=== PATIENT | female | born 1935 | race Caucasian/White ===

== ENCOUNTER 2021-04-26 13:56 | Inpatient (IN) | payer MEDICARE ==
[~2021-04-26] VITALS: Ht 157.5 cm; Wt 48.0 kg
[2021-04-26 15:48] LABS: HEMATOCRIT 44.9 % (37.0-47.0); HEMOGLOBIN 14.7 g/dl (12.0-16.0); IMMATURE GRANULOCYTES 0.3 % (0.0-5.0); MEAN CELL VOLUME 88.4 fL CALC (80.0-100.0); MEAN CORPUSCULAR HGB 28.9 pG CALC (26.0-32.0); MEAN CORPUSCULAR HGB CONC 32.7 g/dL CAL (32.0-36.0); NEUT# 4.22 thou/uL (2.00-7.15); RED BLOOD COUNT 5.08 mill/uL (4.20-5.60); RED CELL DISTRI WIDTH 13.9 % (11.5-15.5)
[2021-04-26 15:48] LABS: URINE BILIRUBIN - DIPSTICK NEGATIVE (NEGATIVE); URINE BLOOD DIPSTICK TRACE-INTACT (NEGATIVE); URINE COLOR YELLOW; URINE GLUCOSE - DIPSTICK NEGATIVE (NEGATIVE); URINE KETONE NEGATIVE (NEGATIVE); URINE PROTEIN - DIPSTICK 100 mg/dL (NEG-TRACE); URINE SPECIFIC GRAVITY >=1.030; URINE UROBILINOGEN - DIPSTICK 0.2 E.U./dL (0.2)
[2021-04-26 15:51] LABS: URINE LEUK ESTERASE SMALL (NEGATIVE); URINE NITRITE - DIPSTICK NEGATIVE (Negative)
[2021-04-26 15:56] LABS: URINE SQUAMOUS EPITHELIAL CELL FEW EPI/hpf (0-FEW); URINE WBC 50-100 WBC/hpf (0-5)
[2021-04-26 16:06] LABS: ALBUMIN 4.4 g/dL (3.2-5.0); BILIRUBIN, TOTAL 1.1 mg/dL (0.0-1.4); CREATININE 1.5 mg/dL (0.5-1.0); POTASSIUM 4.2 mmol/l (3.5-5.1); TOTAL PROTEIN 8.2 g/dL (6.3-8.2)
[2021-04-26 16:11] LABS: D-DIMER 0.51 mg/L (0.19-0.60)
[2021-04-26 16:13] LABS: ACT PARTIAL THROMBO TIME 25.7 SECONDS (20.0-32.5); PROTHROMBIN TIME 10.1 SECONDS (9.0-12.5)
[2021-04-26] MEDS ORDERED: HYDROCHLOROTH12.5 MG PO (19:15)
[2021-04-26] MEDS ORDERED: NORVASC5 M1 PO (19:17)
[2021-04-26] MEDS ORDERED: MEMANTINE HYDRO10 MG PO (19:17)
[2021-04-26] MEDS ORDERED: AMARYL1 MG PO (19:18)
[2021-04-26] MEDS ORDERED: LIPITOR20 MG PO (19:18)
[2021-04-26] MEDS ORDERED: CELEBREX100 M1 PO (19:19)
[2021-04-26] MEDS ORDERED: CLONIDINE0.1 MG PO (19:20)
[2021-04-26] MEDS ORDERED: ADULT ASPIRIN R81 MG PO (19:20)
[2021-04-26 20:20] VITALS: BP 141/66
[2021-04-26 23:40] VITALS: BP 133/53
[2021-04-27 04:00] VITALS: BP 140/69
[2021-04-27 04:59] LABS: HEMATOCRIT 40.3 % (37.0-47.0); HEMOGLOBIN 14.1 g/dl (12.0-16.0); IMMATURE GRANULOCYTES 0.5 % (0.0-5.0); MEAN CELL VOLUME 88.2 fL CALC (80.0-100.0); MEAN CORPUSCULAR HGB 30.9 pG CALC (26.0-32.0); NEUT# 4.21 thou/uL (2.00-7.15); RED BLOOD COUNT 4.57 mill/uL (4.20-5.60); RED CELL DISTRI WIDTH 13.9 % (11.5-15.5)
[2021-04-27 05:08] LABS: ALKALINE PHOSPHATASE 120 u/l (38-126); BUN 24 mg/dL (8-23); BUN/CREATININE RATIO 21 (12-20 (CALC)); C-REACTIVE PROTEIN < 0.5 mg/dL (0-0.9); CARBON DIOXIDE 34 mmol/l (22-30); CHLORIDE 100 mmol/l (95-108); CREATININE 1.1 mg/dL (0.5-1.0); GFR 47 ML/MIN (>=60 (CALC)); GFR FOR AFR.AMER. 57 ML/MIN (>=60 (CALC)); SGOT/AST 37 u/l (9-36); SODIUM 139 mmol/l (137-146)
[2021-04-27 05:10] LABS: ALBUMIN 3.5 g/dL (3.2-5.0); ANION GAP 8 (6-22 (CALC)); BILIRUBIN, TOTAL 0.5 mg/dL (0.0-1.4); POTASSIUM 2.6 mmol/l (3.5-5.1); TOTAL PROTEIN 6.5 g/dL (6.3-8.2)
[2021-04-27 07:00] VITALS: BP 139/57
[2021-04-27 09:59] LABS: MAGNESIUM 1.9 mg/dL (1.6-2.3); POTASSIUM 3.1 mmol/l (3.5-5.1)
[2021-04-27 11:00] VITALS: BP 142/59
[2021-04-27 15:36] VITALS: BP 157/77
[2021-04-27 19:03] VITALS: BP 186/72
[2021-04-27 20:23] VITALS: BP 164/66
[2021-04-28] VITALS: BP 134/58
[2021-04-28 04:12] VITALS: BP 149/62
[2021-04-28 05:16] LABS: HEMATOCRIT 41.5 % (37.0-47.0); HEMOGLOBIN 13.6 g/dl (12.0-16.0); MEAN CORPUSCULAR HGB 29.5 pG CALC (26.0-32.0); MEAN CORPUSCULAR HGB CONC 32.8 g/dL CAL (32.0-36.0); RED BLOOD COUNT 4.61 mill/uL (4.20-5.60); RED CELL DISTRI WIDTH 13.8 % (11.5-15.5)
[2021-04-28 05:41] LABS: ALBUMIN 3.4 g/dL (3.2-5.0); ALKALINE PHOSPHATASE 113 u/l (38-126); ANION GAP 11 (6-22 (CALC)); BILIRUBIN, TOTAL 0.5 mg/dL (0.0-1.4); BUN 29 mg/dL (8-23); BUN/CREATININE RATIO 29 (12-20 (CALC)); CARBON DIOXIDE 28 mmol/l (22-30); CHLORIDE 106 mmol/l (95-108); GFR 53 ML/MIN (>=60 (CALC)); GFR FOR AFR.AMER. > 60 ML/MIN (>=60 (CALC)); MAGNESIUM 1.9 mg/dL (1.6-2.3); POTASSIUM 3.4 mmol/l (3.5-5.1); SGOT/AST 36 u/l (9-36); SODIUM 142 mmol/l (137-146); TOTAL PROTEIN 6.4 g/dL (6.3-8.2)
[2021-04-28 11:00] VITALS: BP 159/69
[2021-04-28 14:45] VITALS: BP 150/67
[2021-04-28 19:00] VITALS: BP 105/50
[2021-04-29] VITALS: BP 140/68
[2021-04-29 04:00] VITALS: BP 141/72
[2021-04-29 05:38] LABS: HEMATOCRIT 40.4 % (37.0-47.0); HEMOGLOBIN 13.5 g/dl (12.0-16.0); IMMATURE GRANULOCYTES 0.3 % (0.0-5.0); MEAN CELL VOLUME 89.4 fL CALC (80.0-100.0); MEAN CORPUSCULAR HGB 29.9 pG CALC (26.0-32.0); MEAN CORPUSCULAR HGB CONC 33.4 g/dL CAL (32.0-36.0); NEUT# 6.9 thou/uL (2.00-7.15); RED BLOOD COUNT 4.52 mill/uL (4.20-5.60); RED CELL DISTRI WIDTH 13.9 % (11.5-15.5)
[2021-04-29 06:08] LABS: ALBUMIN 3.3 g/dL (3.2-5.0); ALKALINE PHOSPHATASE 104 u/l (38-126); ANION GAP 9 (6-22 (CALC)); BILIRUBIN, TOTAL 0.6 mg/dL (0.0-1.4); BUN 24 mg/dL (8-23); BUN/CREATININE RATIO 24 (12-20 (CALC)); C-REACTIVE PROTEIN 0.5 mg/dL (0-0.9); CARBON DIOXIDE 29 mmol/l (22-30); CHLORIDE 106 mmol/l (95-108); GFR 53 ML/MIN (>=60 (CALC)); GFR FOR AFR.AMER. > 60 ML/MIN (>=60 (CALC)); POTASSIUM 3.7 mmol/l (3.5-5.1); SGOT/AST 37 u/l (9-36); SODIUM 141 mmol/l (137-146); TOTAL PROTEIN 6.2 g/dL (6.3-8.2)
[2021-04-29 07:55] VITALS: BP 124/52
[2021-04-29 10:56] VITALS: BP 178/72
[2021-04-29] MEDS ORDERED: ZITHROMAX250 MG PO (13:38)
[2021-04-29] MEDS ORDERED: ASPIRIN REGULA325 M1 PO (13:38)
[2021-04-29] MEDS ORDERED: VENTOLIN HFA108 MCG IN (13:38)
[2021-04-29] MEDS ORDERED: DEXAMETHASON6 MG PO (13:38)
== END 2021-04-29 16:32 | disposition home health service (06) | DRG 177 ==
LOC: ED 13:56 → ED-I 16:52 → ED 18:37 → MS2 18:38
PROVIDERS: Nurse Practitioner; ADMIT Internal Medicine; ATTEND Internal Medicine
PROC: XW033E5 Introduction of Remdesivir Anti-infective into Peripheral Vein, Percutaneous Approach, New Technology Group 5 (ICD-10-PCS; principal; 2021-04-27)
DX: U07.1 COVID-19 (principal); J12.82 Pneumonia due to coronavirus disease 2019; N17.9 Acute kidney failure, unspecified; N39.0 Urinary tract infection, site not specified; R09.02 Hypoxemia; E86.0 Dehydration; E87.6 Hypokalemia; I10 Essential (primary) hypertension; E11.9 Type 2 diabetes mellitus without complications; E78.5 Hyperlipidemia, unspecified; F03.90 Unspecified dementia, unspecified severity, without behavioral disturbance, psychotic disturbance, mood disturbance, and anxiety; B95.1 Streptococcus, group B, as the cause of diseases classified elsewhere; Z79.84 Long term (current) use of oral hypoglycemic drugs; Z79.82 Long term (current) use of aspirin
CPT/HCPCS: J1650

== ENCOUNTER 2021-11-17 12:25 | Emergency (ER) | payer MEDICARE ==
[~2021-11-17] VITALS: Ht 157.5 cm; Wt 54.4 kg
[2021-11-17] VITALS (7 sets, daily range): BP systolic 162–198; BP diastolic 72–87
[~2021-11-17 12:25] MED LIST: ADULT ASPIRIN R81 MG PO; AMARYL1 MG PO; ASPIRIN REGULA325 M1 PO; CELEBREX100 M1 PO; CLONIDINE0.1 MG PO; DEXAMETHASON6 MG PO; HYDROCHLOROTH12.5 MG PO; LIPITOR20 MG PO; MEMANTINE HYDRO10 MG PO; NORVASC5 M1 PO; VENTOLIN HFA108 MCG IN; ZITHROMAX250 MG PO
[2021-11-17 12:50] LABS: HEMOGLOBIN 14.4 g/dl (12.0-16.0); IMMATURE GRANULOCYTES 0.2 % (0.0-5.0); MEAN CORPUSCULAR HGB 28.5 pG CALC (26.0-32.0); MEAN CORPUSCULAR HGB CONC 32.7 g/dL CAL (32.0-36.0); NEUT# 4.58 thou/uL (2.00-7.15); RED BLOOD COUNT 5.06 mill/uL (4.20-5.60); RED CELL DISTRI WIDTH 14.8 % (11.5-15.5)
[2021-11-17 13:09] LABS: PROTHROMBIN TIME 10.4 SECONDS (9.0-12.5)
[2021-11-17 13:11] LABS: ALKALINE PHOSPHATASE 118 u/l (38-126); ANION GAP 12 (6-22 (CALC)); BILIRUBIN, TOTAL 0.4 mg/dL (0.0-1.4); BUN 23 mg/dL (8-23); BUN/CREATININE RATIO 14 (12-20 (CALC)); CARBON DIOXIDE 30 mmol/l (22-30); CHLORIDE 101 mmol/l (95-108); CREATININE 1.6 mg/dL (0.5-1.0); GFR FOR AFR.AMER. 37 ML/MIN (>=60 (CALC)); GFR OTHER RACES 31 ML/MIN (>=60 (CALC)); POTASSIUM 3.8 mmol/l (3.5-5.1); SGOT/AST 26 u/l (9-36); SODIUM 138 mmol/l (137-146); TOTAL PROTEIN 7.3 g/dL (6.3-8.2)
[2021-11-17 13:16] LABS: ALBUMIN 4.1 g/dL (3.2-5.0)
[2021-11-17 14:34] LABS: URINE BILIRUBIN - DIPSTICK NEGATIVE (NEGATIVE); URINE BLOOD DIPSTICK TRACE-INTACT (NEGATIVE); URINE COLOR YELLOW; URINE GLUCOSE - DIPSTICK 250 mg/dL (NEGATIVE); URINE KETONE NEGATIVE (NEGATIVE); URINE LEUK ESTERASE TRACE (NEGATIVE); URINE PROTEIN - DIPSTICK 100 mg/dL (NEG-TRACE); URINE SPECIFIC GRAVITY 1.015; URINE UROBILINOGEN - DIPSTICK 0.2 E.U./dL (0.2)
[2021-11-17 14:38] LABS: URINE NITRITE - DIPSTICK NEGATIVE (Negative)
[2021-11-17 14:45] LABS: URINE BACTERIA MANY hpf; URINE WBC 50-100 WBC/hpf (0-5)
--- NOTE | 2021-11-19 10:19 | NUR ---
PRELIMINARY BC SHOWS G(+) COCCI IN 1/4 VIALS. PT WAS TRANSFERRED TO [facility]. RESULTS FAXED TO SUHAIL BLAKE AT [phone]. WILL FOLLOW UP WHEN FINAL RESULTS AVAILABLE.
== END 2021-11-17 16:42 | disposition short-term general hospital (02) ==
LOC: ED 12:25
PROVIDERS: Family Medicine
DX: G45.9 Transient cerebral ischemic attack, unspecified (principal); I65.23 Occlusion and stenosis of bilateral carotid arteries; N39.0 Urinary tract infection, site not specified; I10 Essential (primary) hypertension; E11.51 Type 2 diabetes mellitus with diabetic peripheral angiopathy without gangrene; F03.90 Unspecified dementia, unspecified severity, without behavioral disturbance, psychotic disturbance, mood disturbance, and anxiety; E78.5 Hyperlipidemia, unspecified; B96.89 Other specified bacterial agents as the cause of diseases classified elsewhere; R78.81 Bacteremia; Z79.84 Long term (current) use of oral hypoglycemic drugs; Z20.822 Contact with and (suspected) exposure to COVID-19
CPT/HCPCS: Q9967

== ENCOUNTER 2021-12-02 11:02 | Observation (INO) | payer MEDICARE ==
[~2021-12-02] VITALS: Ht 157.5 cm; Wt 56.0 kg
[2021-12-02] VITALS (20 sets, daily range): BP systolic 84–161; BP diastolic 42–72
[~2021-12-02 11:02] MED LIST changes: -CELEBREX100 M1 PO; +CELEBREX200 M1 PO; +NORVASC10 M1 PO; -NORVASC5 M1 PO
--- NOTE | 2021-12-02 11:08 | NUR ---
PATIENT ESCORTED INTO ROOM VIA EMS STRETCHER. NAD. CONNECTED TO MONITOR AND VSS.
--- NOTE | 2021-12-02 11:08 | NUR ---
PATIENT ARRIVED TO FACILITY WITH A BRUISE NOTED TO RIGHT FOREARM. SMALL BRUISES AND SCABS NOTED ALL OVER BODY. PATIENT ARRIVED SCRATCHING ALL OVER.
[2021-12-02 11:25] LABS: HEMATOCRIT 38.7 % (37.0-47.0); HEMOGLOBIN 12.5 g/dl (12.0-16.0); IMMATURE GRANULOCYTES 0.3 % (0.0-5.0); MEAN CELL VOLUME 87.6 fL CALC (80.0-100.0); MEAN CORPUSCULAR HGB 28.3 pG CALC (26.0-32.0); MEAN CORPUSCULAR HGB CONC 32.3 g/dL CAL (32.0-36.0); NEUT# 3.99 thou/uL (2.00-7.15); RED BLOOD COUNT 4.42 mill/uL (4.20-5.60); RED CELL DISTRI WIDTH 14.2 % (11.5-15.5)
[2021-12-02 11:42] LABS: ALBUMIN 3.6 g/dL (3.2-5.0); BILIRUBIN, TOTAL 0.6 mg/dL (0.0-1.4); CREATININE 1.8 mg/dL (0.5-1.0); POTASSIUM 3.6 mmol/l (3.5-5.1); TOTAL PROTEIN 6.7 g/dL (6.3-8.2)
--- NOTE | 2021-12-02 12:05 | NUR ---
Reassessment of patient completed. No distress noted.
--- NOTE | 2021-12-02 13:00 | NUR ---
Reassessment of patient completed. No distress noted.
--- NOTE | 2021-12-02 14:10 | NUR ---
Reassessment of patient completed. No distress noted.
--- NOTE | 2021-12-02 14:36 | NUR ---
PATIENT PULLED OUT EMS IV
--- NOTE | 2021-12-02 14:49 | NUR ---
PATIENT BP 105/55. REPORTED TO DR. ESTRELLA BEFORE GIVING HALDOLOL. GAVE APPROVAL TO GIVE IT.
[2021-12-02] MEDS ORDERED: LOSARTAN POTASS25 MG PO (15:23)
[2021-12-02] MEDS ORDERED: OMEPRAZOLE20 MG PO (15:24)
[2021-12-02] MEDS ORDERED: ESCITALOPRAM OXA5 MG PO (15:24)
[2021-12-02] MEDS ORDERED: OLANZAPINE5 MG PO (15:25)
--- NOTE | 2021-12-02 15:40 | NUR ---
PATIENT PULLED OUT SECOND IV.
--- NOTE | 2021-12-02 16:15 | NUR ---
PT ADMITTED FROM ER, BROUGHT UP VIA STRETCHER. PATIENT ALERT TO PERSON. ALERT ENOUGH TO UNDERSTAND WHAT YOURE TELLING HER. LUNGS SOUNDS CLEAR AND STRONG. BREATHING EVEN AND UNLABORED. PT HAS BRUISING ON FOREARMS BILATERALLY. BRUSIING ON THE ABDOMEN WELL. BOWEL SOUNDS ACTIVE IN ALL 4 QUADRANTS. NO EDEMA IN EXTREMITIES. PT ORIENTATED TO ROOM. CALL LIGHT AND BED ALARM EXPLAINED TO PT. IV SITE APPEARS HEALTHY AND FLUSHABLE. BED IN LOWEST POSITION WITH WHEELS LOCKED. CALL LIGHT WITHIN REACH.
--- NOTE | 2021-12-02 16:29 | NUR ---
PATIENT DEPARTED ED VIA STRETCHER AND TELE. REPORT GIVEN TO SUHAIL P[place]TMAN ROOM [id number]
[2021-12-03] VITALS (7 sets, daily range): BP systolic 89–180; BP diastolic 45–78
--- NOTE | 2021-12-03 02:29 | NUR ---
PATIENT VERY CONFUSED. SUN DOWNING. EXITING BED OFTEN AND ANXIOUS
--- NOTE | 2021-12-03 05:48 | NUR ---
PATIENT WAS ANXIOUS MOST OF THE NIGHT IN AND OUT OF BED. DAUGHTER WAS BED SIDE TILL LATE LAST NIGHT AND ASKED FOR LABS, LABS WERE NORMAL LAST NIGHT
--- NOTE | 2021-12-03 07:00 | NUR ---
RECEIVE REPORT FROM PAUL.
[2021-12-03 07:24] LABS: CREATININE 1.3 mg/dL (0.5-1.0); POTASSIUM 3.4 mmol/l (3.5-5.1)
--- NOTE | 2021-12-03 08:00 | NUR ---
PATIENT ALERT AND CONFUSED. STABLE AT THIS TIME. BED ALARM ON. FAMILY MEMBER IS EDUCATED ABOUD MEDICATIONS AND NURSING PLAN FOR TODAY. DAUGHTER REFER UNDERSTAND. SAFETY AND FALL PRECAUTIONS IN PLACE. CALL LIGHT WITHIN IN REACH.
[2021-12-03] MEDS ORDERED: DOCUSATE SOD100 MG PO (11:08)
[2021-12-03] MEDS ORDERED: CLOPIDOGREL75 MG PO (11:16)
--- NOTE | 2021-12-03 12:50 | NUR ---
PATIENT STABLE AT THIS TIME RESTING IN BED. PT CONTINUE CONFUSED
--- NOTE | 2021-12-03 14:38 | NUR ---
PATIENT IS DISCHARGE STABLE AT THIS TIME. REPORT READY GIVED RICARDO
== END 2021-12-03 14:35 ==
LOC: ED 11:02 → ED-I 13:08 → ED 13:54 → MS2 13:55
PROVIDERS: Family Medicine; ADMIT Internal Medicine; ATTEND Internal Medicine
DX: R55 Syncope and collapse (principal); I10 Essential (primary) hypertension; E11.9 Type 2 diabetes mellitus without complications; E78.5 Hyperlipidemia, unspecified; F03.90 Unspecified dementia, unspecified severity, without behavioral disturbance, psychotic disturbance, mood disturbance, and anxiety; I65.29 Occlusion and stenosis of unspecified carotid artery; Z79.84 Long term (current) use of oral hypoglycemic drugs; Z86.73 Personal history of transient ischemic attack (TIA), and cerebral infarction without residual deficits; Z79.02 Long term (current) use of antithrombotics/antiplatelets; Z79.82 Long term (current) use of aspirin; Z20.822 Contact with and (suspected) exposure to COVID-19
CPT/HCPCS: G0378; J1650

== ENCOUNTER 2021-12-10 12:42 | Emergency (ER) | payer MEDICARE ==
[~2021-12-10] VITALS: Ht 157.5 cm; Wt 56.0 kg
[~2021-12-10 12:42] MED LIST changes: +CLOPIDOGREL75 MG PO; +DOCUSATE SOD100 MG PO; +ESCITALOPRAM OXA5 MG PO; +LOSARTAN POTASS25 MG PO; +OLANZAPINE5 MG PO; +OMEPRAZOLE20 MG PO
[2021-12-10 13:18] VITALS: BP 134/81
[2021-12-10 13:23] LABS: HEMATOCRIT 42.2 % (37.0-47.0); HEMOGLOBIN 13.7 g/dl (12.0-16.0); IMMATURE GRANULOCYTES 0.4 % (0.0-5.0); MEAN CELL VOLUME 87.6 fL CALC (80.0-100.0); MEAN CORPUSCULAR HGB 28.4 pG CALC (26.0-32.0); MEAN CORPUSCULAR HGB CONC 32.5 g/dL CAL (32.0-36.0); NEUT# 3.08 thou/uL (2.00-7.15); RED BLOOD COUNT 4.82 mill/uL (4.20-5.60); RED CELL DISTRI WIDTH 14.8 % (11.5-15.5)
[2021-12-10 13:25] VITALS: BP 134/69
[2021-12-10 13:34] LABS: PROTHROMBIN TIME 9.9 SECONDS (9.0-12.5)
[2021-12-10 13:39] LABS: ALBUMIN 4.1 g/dL (3.2-5.0); ALKALINE PHOSPHATASE 124 u/l (38-126); ANION GAP 12 (6-22 (CALC)); BILIRUBIN, TOTAL 0.5 mg/dL (0.0-1.4); BUN 20 mg/dL (8-23); BUN/CREATININE RATIO 15 (12-20 (CALC)); CARBON DIOXIDE 31 mmol/l (22-30); CHLORIDE 101 mmol/l (95-108); CREATININE 1.4 mg/dL (0.5-1.0); GFR FOR AFR.AMER. 43 ML/MIN (>=60 (CALC)); GFR OTHER RACES 36 ML/MIN (>=60 (CALC)); POTASSIUM 3.6 mmol/l (3.5-5.1); SGOT/AST 34 u/l (9-36); SODIUM 139 mmol/l (137-146); TOTAL PROTEIN 7.7 g/dL (6.3-8.2)
[2021-12-10 13:44] LABS: URINE BILIRUBIN - DIPSTICK NEGATIVE (NEGATIVE); URINE BLOOD DIPSTICK NEGATIVE (NEGATIVE); URINE COLOR YELLOW; URINE GLUCOSE - DIPSTICK 250 mg/dL (NEGATIVE); URINE KETONE NEGATIVE (NEGATIVE); URINE LEUK ESTERASE NEGATIVE (NEGATIVE); URINE PH 7.5 (4.5-8.0); URINE PROTEIN - DIPSTICK 100 mg/dL (NEG-TRACE); URINE SPECIFIC GRAVITY 1.015; URINE UROBILINOGEN - DIPSTICK 0.2 E.U./dL (0.2)
[2021-12-10 13:53] LABS: URINE NITRITE - DIPSTICK NEGATIVE (Negative)
[2021-12-10 13:55] LABS: URINE WBC 0-2 WBC/hpf (0-5)
[2021-12-10 14:10] VITALS: BP 134/69
== END 2021-12-10 15:41 | disposition home or self-care (01) ==
LOC: ED 12:42
PROVIDERS: Emergency Medicine
DX: E11.649 Type 2 diabetes mellitus with hypoglycemia without coma (principal); R40.4 Transient alteration of awareness; G93.49 Other encephalopathy; I12.9 Hypertensive chronic kidney disease with stage 1 through stage 4 chronic kidney disease, or unspecified chronic kidney disease; E11.22 Type 2 diabetes mellitus with diabetic chronic kidney disease; N18.9 Chronic kidney disease, unspecified; F03.90 Unspecified dementia, unspecified severity, without behavioral disturbance, psychotic disturbance, mood disturbance, and anxiety
CPT/HCPCS: Q3014

== ENCOUNTER 2021-12-16 05:36 | Emergency (ER) | payer MEDICARE ==
[~2021-12-16] VITALS: Ht 157.5 cm; Wt 50.0 kg
[2021-12-16 06:21] LABS: HEMATOCRIT 42.4 % (37.0-47.0); HEMOGLOBIN 13.8 g/dl (12.0-16.0); IMMATURE GRANULOCYTES 0.2 % (0.0-5.0); MEAN CELL VOLUME 87.6 fL CALC (80.0-100.0); MEAN CORPUSCULAR HGB 28.5 pG CALC (26.0-32.0); MEAN CORPUSCULAR HGB CONC 32.5 g/dL CAL (32.0-36.0); NEUT# 3.03 thou/uL (2.00-7.15); RED BLOOD COUNT 4.84 mill/uL (4.20-5.60); RED CELL DISTRI WIDTH 15.1 % (11.5-15.5)
[2021-12-16 06:58] LABS: ALBUMIN 4.3 g/dL (3.2-5.0); ALKALINE PHOSPHATASE 133 u/l (38-126); ANION GAP 13 (6-22 (CALC)); BUN 20 mg/dL (8-23); BUN/CREATININE RATIO 12 (12-20 (CALC)); CARBON DIOXIDE 30 mmol/l (22-30); CHLORIDE 101 mmol/l (95-108); CREATININE 1.7 mg/dL (0.5-1.0); ETHYL ALCOHOL 0 mg/dl (0-30); GFR FOR AFR.AMER. 35 ML/MIN (>=60 (CALC)); GFR OTHER RACES 29 ML/MIN (>=60 (CALC)); MAGNESIUM 1.9 mg/dL (1.6-2.3); POTASSIUM 3.3 mmol/l (3.5-5.1); SGOT/AST 29 u/l (9-36); SODIUM 142 mmol/l (137-146); TOTAL PROTEIN 7.7 g/dL (6.3-8.2)
[2021-12-16 06:59] LABS: BILIRUBIN, TOTAL 0.8 mg/dL (0.0-1.4)
[2021-12-16 09:08] LABS: URINE BILIRUBIN - DIPSTICK NEGATIVE (NEGATIVE); URINE BLOOD DIPSTICK TRACE-INTACT (NEGATIVE); URINE COLOR YELLOW; URINE GLUCOSE - DIPSTICK NEGATIVE (NEGATIVE); URINE KETONE NEGATIVE (NEGATIVE); URINE LEUK ESTERASE NEGATIVE (NEGATIVE); URINE PROTEIN - DIPSTICK 100 mg/dL (NEG-TRACE); URINE SPECIFIC GRAVITY 1.015; URINE UROBILINOGEN - DIPSTICK 0.2 E.U./dL (0.2)
[2021-12-16 09:10] LABS: URINE NITRITE - DIPSTICK NEGATIVE (Negative)
[2021-12-16 09:15] LABS: URINE RBC 0-2 RBC/hpf (0-5); URINE SQUAMOUS EPITHELIAL CELL FEW EPI/hpf (0-FEW)
[2021-12-17] VITALS (21 sets, daily range): BP systolic 87–165; BP diastolic 48–94
[2021-12-18] VITALS (8 sets, daily range): BP systolic 106–154; BP diastolic 47–108
== END 2021-12-18 19:29 ==
LOC: ED 05:36
PROVIDERS: Family Medicine
DX: G30.9 Alzheimer's disease, unspecified (principal); F02.81 Dementia in other diseases classified elsewhere, unspecified severity, with behavioral disturbance; E11.9 Type 2 diabetes mellitus without complications; I10 Essential (primary) hypertension; R21 Rash and other nonspecific skin eruption; E78.5 Hyperlipidemia, unspecified; K21.9 Gastro-esophageal reflux disease without esophagitis; Z20.822 Contact with and (suspected) exposure to COVID-19